=== PATIENT | male | born 1980 | race Caucasian/White ===

== ENCOUNTER 2016-12-27 18:26 | Emergency (ER) | payer MEDICAID ==
[~2016-12-27] VITALS: Ht 167.6 cm; Wt 82.1 kg
[2016-12-27 20:19] VITALS: BP 128/68
== END 2016-12-27 20:19 | disposition home or self-care (01) ==
LOC: ED 18:26
DX: H92.03 Otalgia, bilateral (principal)

== ENCOUNTER 2019-07-24 08:41 | Emergency (ER) | payer OTHER ==
[~2019-07-24] VITALS: Ht 170.2 cm; Wt 83.0 kg
[2019-07-24 08:47] VITALS: Ht 170.2 cm; Wt 83.0 kg
[2019-07-24 11:59] VITALS: BP 108/72
== END 2019-07-24 11:59 | disposition home or self-care (01) ==
LOC: ED 08:41
DX: M54.5 Low back pain (principal); R10.9 Unspecified abdominal pain
CPT/HCPCS: Q0092

== ENCOUNTER 2020-09-07 18:55 | Emergency (ER) | payer OTHER ==
[~2020-09-07] VITALS: Ht 172.7 cm; Wt 88.9 kg
[2020-09-07 20:11] VITALS: BP 143/80
== END 2020-09-07 20:12 | disposition home or self-care (01) ==
LOC: ED 18:55
DX: M54.6 Pain in thoracic spine (principal)